=== PATIENT | male | born 1960 | race Caucasian/White ===

== ENCOUNTER 2017-06-22 07:33 | Day surgery (SDC) | payer OTHER ==
[2017-06-22 08:48] VITALS: O2SAT 100
[2017-06-22] MEDS ORDERED: Propofol 10 mg/ml Inj (20 ML) ONE (09:00)
[2017-06-22] MEDS ORDERED: Pantoprazole 40 mg EC Tab PO STA (09:02)
--- NOTE | 2017-06-22 09:02 | CP.SDSHP ---
Same Day Surgery H & P - History Proposed Procedure: EGD Pre-Op Diagnosis: dysphagia. heartburn refractory to therapy - Previous Medical/Surgical History Misc: Other (Gastritis) - Allergies Allergies: Allergies No Known Allergies Allergy (Verified 06/21/17 13:39) - Physical Exam Vital Signs: Vital Signs 06/22/17 08:00 Temperature 98.2 F Pulse Rate 58 L Respiratory 19 Rate Blood Pressure 130/77 O2 Sat by Pulse 100 Oximetry Mental Status: Alert & Oriented x3 Neuro: WNL Heart: WNL Lungs: WNL GI: WNL - Impression Impression: dysphagia. heartburn refractory to therapy Pt. Evaluated Today:Candidate for Anesthesia & Procedure: Yes - Date & Time Date: 06/22/17 Time: 09:01 Short Stay Discharge - Short Stay Discharge Admitting Diagnosis/Reason for Visit: HEARTBURN, EPIGASTRIC PAIN Disposition: HOME/ ROUTINE
[2017-06-22 10:04] VITALS: TEMP 97.4
[2017-06-22 10:15] VITALS: BP 114/67; PULSE 60; RESP 14
== END 2017-06-22 10:05 | disposition home or self-care (01) ==
LOC: C.ENDO 07:33
PROVIDERS: ATTEND Internal Medicine Gastroenterology
DX: K21.0 Gastro-esophageal reflux disease with esophagitis (principal); R10.13 Epigastric pain; K29.60 Other gastritis without bleeding; K44.9 Diaphragmatic hernia without obstruction or gangrene
CPT/HCPCS: 43239; 88305; 88312; 88313; 88342; J2001; J2704